=== PATIENT | female | born 1940 | race Two or more races ===

== ENCOUNTER 2023-08-06 16:13 | Emergency (ER) | payer OTHER, MEDICAID ==
[~2023-08-06] VITALS: Ht 160 cm; Wt 62.6 kg
[2023-08-06] MEDS ORDERED: ACETAMINOPHEN ES 500 MG TABLET ONE (17:29)
[2023-08-06] MEDS ORDERED: ONDANSETRON HCL/PF 4 MG/2 ML VIAL ONE (17:29)
[2023-08-06] MEDS ORDERED: ONDANSETRON 4 MG TAB.RAPDIS ONE (17:30)
[2023-08-06] MEDS ORDERED: ACETAMINOPHEN ES 500 MG TABLET PO ONE (17:30)
[2023-08-06] MEDS ORDERED: ONDANSETRON 4 MG TAB.RAPDIS SL ONE (17:30)
[2023-08-06] MEDS ORDERED: ONDA4TAB5 PO (17:47)
[2023-08-06 18:21] VITALS: BP 150/79; TEMP 98; O2SAT 98
== END 2023-08-06 18:21 | disposition home or self-care (01) ==
LOC: ER 16:31
DX: S00.03XA Contusion of scalp, initial encounter (principal); I10 Essential (primary) hypertension; Z88.0 Allergy status to penicillin; W01.0XXA Fall on same level from slipping, tripping and stumbling without subsequent striking against object, initial encounter; Y93.89 Activity, other specified; Y92.89 Other specified places as the place of occurrence of the external cause; Y99.8 Other external cause status
CPT/HCPCS: 99284; 70450; Q0162; J2405